=== PATIENT | female | born 1995 | race Two or more races ===

== ENCOUNTER → 2020-04-21 | Outpatient (CLI) | payer SELFPAY | LOC: M LABSMTC 13:25 | PROVIDERS: ATTEND Pediatrics | DX: Z20.828 Contact with and (suspected) exposure to other viral communicable diseases (principal) ==

== ENCOUNTER → 2020-05-29 | Outpatient (CLI) | payer SELFPAY | LOC: M LABSMTC 12:20 | PROVIDERS: ATTEND Pediatrics | DX: Z20.822 Contact with and (suspected) exposure to COVID-19 (principal) ==

== ENCOUNTER 2020-10-06 06:40 | Day surgery (SDC) | payer OTHER ==
[~2020-10-06] VITALS: Ht 165.1 cm; Wt 66.2 kg
[~2020-10-06 06:40] MED LIST: CVS1CHW13 PO; NS 1,000 ML IV ONE; PURE500C5 PO; TRI-TAB PO
[2020-10-06] MEDS ORDERED: LIDOCAINE 2% 100MG/5ML SDV (FOR ANES.) As Ordered ONE (06:54)
[2020-10-06] MEDS ORDERED: propofoL 200 MG/20 ML VIAL As Ordered ONE ×2 (06:54→07:55)
--- NOTE | 2020-10-06 08:26 | ROOR ---
Patient Name: Jojo Pond Procedure Date: 10/06/2020 7:51 AM Date of : 1995 Age: 25 Room: [facility] Gender: Female Note Status: Finalized Procedure: Colonoscopy Indications: Hematochezia Providers: Dereck Alcocer MD Referring MD: Carlos France Do, DANICA MISHRA MD Requesting Provider: Medicines: Monitored Anesthesia Care Complications: No immediate complications. Procedure: Pre-Anesthesia Assessment: - Prior to the procedure, a History and Physical was performed, and patient medications and allergies were reviewed. The patient is competent. The risks and benefits of the procedure and the sedation options and risks were discussed with the patient. All questions were answered and informed consent was obtained. Patient identification and proposed procedure were verified by the physician, the nurse and the anesthesiologist in the procedure room. Mental Status Examination: normal. Airway Examination: normal oropharyngeal airway and neck mobility. Respiratory Examination: clear to auscultation. CV Examination: normal. Prophylactic Antibiotics: The patient does not require prophylactic antibiotics. Prior Anticoagulants: The patient has taken no previous anticoagulant or antiplatelet agents. ASA Grade Assessment: I - A normal, healthy patient. After reviewing the risks and benefits, the patient was deemed in satisfactory condition to undergo the procedure. The anesthesia plan was to use monitored anesthesia care (MAC). Immediately prior to administration of medications, the patient was re-assessed for adequacy to receive sedatives. The heart rate, respiratory rate, oxygen saturations, blood pressure, adequacy of pulmonary ventilation, and response to care were monitored throughout the procedure. The physical status of the patient was re-assessed after the procedure. The Colonoscope was introduced through the anus and advanced to the terminal ileum, with identification of the appendiceal orifice and IC valve. The colonoscopy was performed without difficulty. The patient tolerated the procedure well. The quality of the bowel preparation was good. The terminal ileum, ileocecal valve, appendiceal orifice, and rectum were photographed. Scope insertion time was 2 minutes. Scope withdrawal time was 8 minutes. The total duration of the procedure was 10 minutes. Findings: The perianal and digital rectal examinations were normal. The terminal ileum appeared normal. Non-bleeding external and internal hemorrhoids were found during retroflexion. The hemorrhoids were small. There is no endoscopic evidence of bleeding or fissures in the entire colon. No other significant abnormalities were identified in a careful examination of the remainder of the colon. Impression: - The examined portion of the ileum was normal. - Non-bleeding external and internal hemorrhoids. - No specimens collected. Recommendation: - Patient has a contact number available for emergencies. The signs and symptoms of potential delayed complications were discussed with the patient. Return to normal activities tomorrow. Written discharge instructions were provided to the patient. - High fiber diet. - Continue present medications. - Use original regular Metamucil one tablespoon PO daily. - Preparation H suppository: Insert rectally daily for 5 days. - Repeat colonoscopy at age 51 for screening purposes. - Telephone GI clinic if symptomatic. - Return to primary care physician. Procedure Code(s): --- Professional --- 94263, Colonoscopy, flexible; diagnostic, including collection of specimen(s) by brushing or washing, when performed (separate procedure) Diagnosis Code(s): --- Professional --- K64.8, Other hemorrhoids K92.1, Melena (includes Hematochezia) CPT copyright 2019 [employer]. All rights reserved. The codes documented in this report are preliminary and upon aligning inspector review may be revised to meet current compliance requirements. Dereck Alcocer MD Dereck Alcocer MD 10/06/2020 8:26:11 AM Electronically signed by Dereck Alcocer MD Number of Addenda: 0 Note Initiated On: 10/06/2020 7:51 AM Estimated Blood Loss: Estimated blood loss: none.
[2020-10-06 08:46] VITALS: BP 103/64
== END 2020-10-06 08:49 | disposition home or self-care (01) ==
LOC: M OPP 06:40
PROVIDERS: ATTEND Internal Medicine Gastroenterology
DX: K92.1 Melena (principal); K64.8 Other hemorrhoids; Z80.0 Family history of malignant neoplasm of digestive organs; Z80.3 Family history of malignant neoplasm of breast

== ENCOUNTER → 2021-05-23 | Outpatient (REF) ==
[~2021-05-23] MED LIST changes: -NS 1,000 ML IV ONE
== END ==
LOC: M LABSMTC 09:27
PROVIDERS: ATTEND Pediatrics
DX: Z11.52 Encounter for screening for COVID-19 (principal)